=== PATIENT | male | born 1950 | race Caucasian/White ===

== ENCOUNTER 2024-08-15 21:43 | Emergency (ER) | payer MEDICARE, OTHER, SELFPAY ==
[2024-08-15 21:57] VITALS: BP 148/82
[2024-08-15 22:04] LABS: Hematocrit 39.8 % (39.0-52.0); Hemoglobin 14.1 g/dL (13.0-18.0); Mean Corp Hgb Conc. 35.4 g/dL (33.0-37.0); Mean Corpuscular Volume 89.4 fL (80.0-94.0); Nucleated Red Blood Cells % 0 % (-); Platelet Count 202 10^3/uL (130-400); Red Cell Dist. Width 13.7 % (11.5-14.5)
[2024-08-15 22:21] LABS: ALT (SGPT) 24 U/L (0-50); AST (SGOT) 22 U/L (17-59); Albumin 4.7 g/dl (3.5-5.0); Alkaline Phosphatase 40 U/L (38-126); Blood Urea Nitrogen 27 mg/dl (9-20); Calcium 9.4 mg/dl (8.4-10.2); Carbon Dioxide 29 mmol/L (22-30); Chloride 100 mmol/L (98-107); Glucose 159 mg/dl (70-99); Potassium 4.5 mmol/L (3.5-5.1); Sodium 134 mmol/L (135-145); Total Protein 7.6 g/dl (6.3-8.2); eGFR > 60.00
[2024-08-15 22:32] LABS: Troponin I < 0.012 ng/ml
[2024-08-16 01:22] VITALS: BP 120/68
[2024-08-16 01:24] VITALS: BMI 26.6
--- NOTE | 2024-08-16 01:46 | ED.GENMED ---
History of Present Illness
General
Chief Complaint: Chest Pain
Source: patient
Exam Limitations: none
Time Seen by Provider: 08/16/24 01:45
History of Present Illness
History of Present Illness:
Note:
CHIEF COMPLAINT(S)
Chest pain
HISTORY OF PRESENT ILLNESS
The patient is a 74-year-old male with a history of hypertension and gastroesophageal reflux disease (GERD) who presented with chest pressure that began at approximately 11:00 AM. The patient describes the sensation as pressure rather than pain,
initially occurring while drinking coffee and not associated with exertion. The chest pressure was accompanied by dizziness, though there was no vertigo. The patient reports a previous onset of similar chest sensation about 10 years ago, with no
organic diagnosis at that time. Throughout the day, the sensation of pressure persisted without full abatement and worsened significantly in the hour before presentation. The discomfort intensified when lying down and did not alleviate with
positional changes. The patient did not experience nausea, vomiting, or dyspnea but noted increased pain on deep inspiration. 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
significant event resulting in extensive vein thromboembolism in the leg. The patient also has an established relationship with a meter attendant for the management of hypertension but denies any prior history of coronary artery disease. The chest pain
was located in the middle of the chest, slightly to the right, and radiated to the neck earlier in the day. The patient denied any upper abdominal pain or numbness and tingling in the arms. He has no known history of coronary disease but does
follow-up with a meter attendant who manages his high blood pressure and high cholesterol. Patient follows with with cardiology with [facility]. He has a right bundle branch block noted on today's EKG which patient has a history of and this is not new.
PHYSICAL EXAM
General: Patient is well appearing and in no acute distress; non-toxic
Skin: Warm and dry, no rashes or lesions
Head: Normocephalic, atraumatic
Eyes: Sclera non-icteric. EOMs intact.
Cardiac: Regular rate and rhythm, no murmurs, no tenderness palpation external chest wall
Peripheral Vascular: No lower extremity swelling or edema
Pulm: Normal respiratory effort, no wheezes, rales, rhonchi
Abdomen: No abdominal tenderness to palpation
Neuro: CN II-XII intact, no focal neurologic deficits.
Psychiatric: Appropriate mood and affect.
PROBLEM LIST
- Acute: Chest pain, potentially cardiac in origin.
- Chronic: Hypertension, GERD.
PLAN
1. Repeat EKG to monitor any changes, especially since the patients pain has recently worsened.
2. Repeat troponin levels to rule out myocardial injury or infarction.
3. Administer a GI cocktail to evaluate if symptoms improve, suggesting a gastrointestinal rather than cardiac origin.
4. Perform a D-dimer test due to the history of pulmonary emboli, despite atypical symptoms for thromboembolism.
5. Conduct a chest X-ray to rule out pneumothorax and other pulmonary conditions.
DIFFERENTIAL DIAGNOSIS
The Differential Diagnosis includes, in no particular order and is not limited to:
1. Myocardial infarction
2. Angina pectoris
3. Pulmonary embolism
4. Gastroesophageal reflux disease
5. Musculoskeletal chest pain
6. Pneumothorax
7. Aortic dissection
8. Costochondritis
9. Pericarditis
10. Esophageal spasm
CHART REVIEW
No prior ER physician documentation to review
MDM/DISPOSITION
The patient is a 74-year-old male with a history of hypertension and gastroesophageal reflux disease (GERD) who presented with chest pressure that began at approximately 11:00 AM. It initially got better but then became worse. It started after
drinking coffee. Patient has no personal history of coronary artery disease but does have a history of hypertension and hyperlipidemia. On physical exam, patient is well-appearing appearing in no acute distress. Heart regular rate and rhythm, no
murmurs. He has no tenderness palpation of external chest wall. He got blood work, his D-dimer is normal. His BUN to creatinine ratio is elevated. His troponin is undetectable x 2. He got a chest x-ray which showed no pneumothorax. No widened
mediastinum. He was given a GI cocktail and noted complete resolution of his symptoms. Suspect reflux/gastritis. Patient advised to follow-up with GI doctor. Patient stable for discharge.
Review of Systems
Review of Systems
All Other Systems: ROS reviewed and negative except as documented in HPI and ROS
Phy Exam
Physical Exam
Physical Exam:
see hpi
Scores
Heart Score for Chest Pain Patients
STEMI patient?: No
History: Moderately Suspicious
ECG: Normal
Age: >/= 65 years
Risk Factors: 1 or 2 Risk Factors
Troponin: </= Normal Limit
Heart Score for Chest Pain Patients: 4
Heart Score Risk: 20.3% MACE over next 6 weeks
Course
Orders/Labs/Results
Orders:
Orders
08/15/24 21:44
ECG [Electrocardiogram (*1)] Urgent
Reason for Study: Chest Pain
EKG- Treatment ONCE
08/15/24 21:56
Complete Blood Count/With Diff Urgent
Comprehensive Metabolic Panel Urgent
Troponin I Urgent
08/16/24 01:41
EKG [Electrocardiogram (*1)] Urgent
Reason for Study: Chest Pain
08/16/24 01:42
EKG- Treatment ONCE
08/16/24 02:00
Mag Hydrox/Al Hydrox/Simeth [Maalox] 30 ml Phenobarb/Hyoscy/Atropine/Scop [] 10 ml Viscous Lidocaine 2% [Xylocaine Viscous Cup] 10 ml PO NOW
CR Chest - 2 Views Urgent
Comment:
Reason For Exam: right sided chest pain
08/16/24 02:02
D-Dimer Urgent
Troponin I Urgent
Acetaminophen [Tylenol] 325 mg PO NOW STA
08/16/24 02:07
Mag Hydrox/Al Hydrox/Simeth [Maalox] 30 ml .ROUTE .STK-MED ONE
Phenobarb/Hyoscy/Atropine/Scop [] 10 ml .ROUTE .STK-MED ONE
Viscous Lidocaine 2% [Xylocaine Viscous Cup] 15 ml .ROUTE .STK-MED ONE
Abnormal Lab Results
08/15/24
21:56
RBC 4.45 L 10^6/uL
(4.70-6.10)
MCH 31.7 H pg
(27.0-31.0)
Absolute Monos (auto) 0.8 H 10^3/uL
(0.1-0.6)
Sodium 134 L mmol/L
(135-145)
BUN 27 H mg/dl
(9-20)
Glucose 159 H mg/dl
(70-99)
08/15/24 21:56
08/15/24 21:56
Vital Signs
Initial and Last Documented VS:
Initial Vital Signs
Temp Pulse Resp Pulse Ox
98.3 F 81 18 97
08/15/24 21:50 08/15/24 21:50 08/15/24 21:50 08/15/24 21:50
Last Documented Vital Signs
Temp Pulse Resp BP Pulse Ox
98.1 F 57 14 106/65 93
08/16/24 01:22 08/16/24 03:15 08/16/24 03:15 08/16/24 03:00 08/16/24 03:15
*Pulse Oximetry
SaO2: 97
Oxygen Mode of Delivery: Room air
Patient hypoxic: no
*Critical Care Note
Total Time (30-74mins, 75-104mins- exclusive of procedures): Not Applicable
ED Attending Note
-
Portions of this chart may have been created with voice recognition software.� Occasional wrong word or��sound alike� substitutions may have occurred due to the inherent limitations of voice recognition software.
Discharge Plan
Departure
Patient Disposition: Home (Routine Discharge)
Date of Disposition: 08/16/24
Time of Disposition: 03:51
Patient with high blood pressure during this ER visit?: Yes
Condition: Good
Discharge Problem:
GERD (gastroesophageal reflux disease), Chest pain
Instructions: Acid reflux and GERD in adults, Chest pain - Discharge instructions, BLOOD PRESSURE
Referrals:
Simón Holder DO [Family Provider, Family Practice]
Activity Restrictions/Additional Instructions:
Please follow-up with your meter attendant.
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
PLEASE RETURN EMERGENCY DEPARTMENT TO DEVELOP ACUTE WORSENING OR SYMPTOMS, VOMITING OF BLOOD, RECTAL BLEEDING, DARK TARRY STOOLS, SHORTNESS OF BREATH, WEAKNESS ONE-SIDED BODY VERSUS OTHER, DIFFICULTY AMBULATING, LIGHTHEADEDNESS, DIZZINESS, OR ANY
OTHER SYMPTOMS SYMPTOMS WORRISOME TO YOU.
Interventions
Interventions:
*Risk Screen - Suicide Last Done: 08/15/24 21:50
*General Assessment Last Done: 08/16/24 01:24
*Neglect/Abuse Screening Last Done: 08/16/24 01:24
*ED- Fall Risk Assessment Last Done: 08/16/24 01:24
*ED COVID-19 Vaccine History Last Done: 08/16/24 01:24
*Nursing Disposition Last Done: 08/16/24 04:13
ED- Cardiac Assessment Last Done: 08/16/24 01:24
Discharge Date and Time
Discharge Date/Time: 08/16/24 04:14
Print Language: ZAMBIAN
[2024-08-16 02:01] VITALS: BP 125/72
[2024-08-16] MEDS: TYLENOL 325 MG PO (02:11)
[2024-08-16] MEDS: MAALOX 50 PO (02:13)
[2024-08-16 02:27] LABS: D-Dimer 0.33 ug/mlFEU (0.00-0.50)
[2024-08-16 02:54] LABS: Troponin I < 0.012 ng/ml
[2024-08-16 03:00] VITALS: BP 106/65
== END 2024-08-16 04:14 | disposition home or self-care (01) ==
LOC: EMR 21:43
PROVIDERS: Emergency Medicine; Physician Assistant; EMERGENCY PHYSICIAN Student in an Organized Health Care Education/Training Program; FAMILY PHYSICIAN Family Medicine
DX: K21.9 Gastro-esophageal reflux disease without esophagitis (principal); R07.89 Other chest pain; I10 Essential (primary) hypertension; E78.00 Pure hypercholesterolemia, unspecified; I45.10 Unspecified right bundle-branch block; Z86.711 Personal history of pulmonary embolism; Z86.718 Personal history of other venous thrombosis and embolism
CPT/HCPCS: 99284; 71046; 80053; 84484; 85025; 85379; 93005